=== PATIENT | female | born 1950 | race Caucasian/White ===

== ENCOUNTER 2023-01-05 12:08 | Inpatient (IN) | payer MEDICARE ==
[~2023-01-05] VITALS: Ht 175.3 cm; Wt 74.8 kg
[2023-01-05] MEDS ORDERED: HYDR200T81 PO (12:38)
[2023-01-05] MEDS ORDERED: DILT240C88 PO (12:38)
[2023-01-05] MEDS ORDERED: OLME40TA12 PO (12:38)
[2023-01-05] MEDS ORDERED: CYCL30DR EACHEYE (12:38)
[2023-01-05] MEDS ORDERED: LEVO125T PO (12:38)
[2023-01-05] MEDS ORDERED: PRED-429 PO (12:38)
[2023-01-05 12:49] LABS: BASOPHILS % (AUTO) 0.2 % (0.0-2.0); EOSINOPHILS % (AUTO) 0.4 % (0.0-7.0); HEMATOCRIT 38.3 % (31.2-41.9); HEMOGLOBIN 13.2 g/dL (10.9-14.3); LYMPHOCYTES # (AUTO) 0.5 K/uL (0.8-4.8); MEAN CORPUSCULAR HEMOGLOBIN 33.1 uug (24.7-32.8); MEAN CORPUSCULAR HGB CONC 34 g/dL (32.3-35.6); MEAN CORPUSCULAR VOLUME 96.2 fL (75.5-95.3); MONOCYTES # (AUTO) 0.4 K/uL (0.1-1.30); MONOCYTES % (AUTO) 3.5 % (0.0-11.0); NEUTROPHILS # (AUTO) 10.4 K/uL (1.8-8.9); NEUTROPHILS % (AUTO) 91.9 % (38.5-71.5); PLATELET COUNT (AUTO) 230 K/uL (179-408); RED BLOOD CELL COUNT(AUTO) 3.98 MIL/uL (3.63-4.92); RED CELL DISTRIBUTION WIDTH 13.7 % (12.3-17.7); WHITE BLOOD COUNT (AUTO) 11.3 K/uL (3.8-11.8)
[2023-01-05 12:55] LABS: DIFFERENTIAL COMMENT 1
[2023-01-05 12:56] LABS: *BILIRUBIN,URIN NEGATIVE (NEGATIVE); *BLOOD, URINE NEGATIVE (NEGATIVE); *CLARITY,URINE CLEAR (CLEAR); *COLOR,URINE YELLOW (YELLOW); *KETONES,URINE NEGATIVE (NEGATIVE); *PROTEIN,URINE NEGATIVE (NEGATIVE); *UROBILINOGEN,URINE 0.2 E.U./dl (NORMAL); LEUKOCYTE ESTERASE ,URINE NEGATIVE (NEGATIVE); NITRITE, URINE POSITIVE (NEGATIVE); UGLUCOSE NEGATIVE (NEGATIVE)
[2023-01-05] MEDS ORDERED: hydrALAZINE HCL 20 MG/1 ML VIAL IV PRN (13:15)
[2023-01-05] MEDS ORDERED: MORPHINE SULFATE 2 MG/1 ML DISP.SYRIN IVP PRN (13:15)
[2023-01-05] MEDS ORDERED: ONDANSETRON 4 MG/2 ML VIAL IV PRN (13:15)
[2023-01-05] MEDS ORDERED: ACETAMINOPHEN 325 MG TABLET PO PRN (13:15)
[2023-01-05 13:59] LABS: CALCIUM 10.2 mg/dL (8.5-10.1); CARBON DIOXIDE 28 mmol/L (21-32); CHLORIDE 97 mmol/L (98-107); CREATININE 0.7 mg/dL (0.6-1.3); GLUCOSE 136 mg/dL (74-106); POTASSIUM 4.8 mmol/L (3.5-5.1); SODIUM SERUM 132 mmol/L (136-145); UREA NITROGEN, BLOOD 11 mg/dL (7-18)
[2023-01-05 14:08] LABS: ALANINE AMINOTRANSFERASE 20 U/L (14-59); ALBUMIN 3.9 g/dL (3.4-5.0); ALKALINE PHOSPHATASE 75 U/L (50-136); ASPARTATE AMINOTRANSFERASE 16 U/L (15-37); BILIRUBIN,DIRECT 0.2 mg/dL (0.0-0.2); BILIRUBIN,TOTAL 0.6 mg/dL (0.2-1.0); TOTAL PROTEIN, SERUM 6.6 g/dL (6.4-8.2)
[2023-01-05] MEDS ORDERED: KETOROLAC TROMETHAMINE 15 MG INJ ONE (14:25)
[2023-01-05 14:30] LABS: BACTERIA,URINE MANY /HPF (NONE SEEN); SQUAMOUS EPITHELIAL CELL,UR FEW /HPF (NONE SEEN)
[2023-01-05] MEDS ORDERED: KETOROLAC TROMETHAMINE 15 MG INJ IVP ONE (14:30)
[2023-01-05] MEDS ORDERED: FENTANYL CITRATE 100 MCG/2 ML AMPUL ONE (15:27)
[2023-01-05] MEDS ORDERED: FENTANYL CITRATE 100 MCG/2 ML AMPUL IV ONE (15:30)
[2023-01-05 16:45] VITALS: BP 132/55; TEMP 98.1; O2SAT 99
[2023-01-05] MEDS: predniSONE 5 MG TABLET PO SCH (17:45)
[2023-01-05] MEDS: IV NS 1000 ML 1,000 ML IV SCH (17:45)
[2023-01-05] MEDS: HYDROXYCHLOROQUINE SULFATE 200 MG TABLET PO SCH (17:45)
[2023-01-05] MEDS: DOCUSATE SODIUM 100 MG CAPSULE PO SCH (17:46)
[2023-01-05] MEDS ORDERED: PREDNISONE PO SCH (18:00)
[2023-01-05 20:00] VITALS: BP 124/66; TEMP 98; O2SAT 100
[2023-01-06] MEDS: IV NS 1000 ML 1,000 ML IV SCH (03:03)
[2023-01-06 04:42] VITALS: BP 144/60; TEMP 98; O2SAT 99
[2023-01-06] MEDS: LEVOTHYROXINE SODIUM 125 MCG TABLET PO SCH (06:23)
[2023-01-06 07:10] LABS: BASOPHILS % (AUTO) 0.5 % (0.0-2.0); EOSINOPHILS # (AUTO) 0.1 K/uL (0.0-0.7); EOSINOPHILS % (AUTO) 1.7 % (0.0-7.0); HEMATOCRIT 32.6 % (31.2-41.9); HEMOGLOBIN 11.5 g/dL (10.9-14.3); LYMPHOCYTES # (AUTO) 0.6 K/uL (0.8-4.8); LYMPHOCYTES % (AUTO) 9.3 % (20.5-51.5); MEAN CORPUSCULAR HEMOGLOBIN 33.9 uug (24.7-32.8); MEAN CORPUSCULAR HGB CONC 35 g/dL (32.3-35.6); MEAN CORPUSCULAR VOLUME 95.8 fL (75.5-95.3); MONOCYTES # (AUTO) 0.6 K/uL (0.1-1.30); MONOCYTES % (AUTO) 9.8 % (0.0-11.0); NEUTROPHILS % (AUTO) 78.7 % (38.5-71.5); PLATELET COUNT (AUTO) 211 K/uL (179-408); RED CELL DISTRIBUTION WIDTH 13.8 % (12.3-17.7); WHITE BLOOD COUNT (AUTO) 6.3 K/uL (3.8-11.8)
[2023-01-06 07:28] LABS: DIFFERENTIAL COMMENT 1
[2023-01-06 07:30] LABS: ALANINE AMINOTRANSFERASE 35 U/L (14-59); ALBUMIN 3.3 g/dL (3.4-5.0); ALKALINE PHOSPHATASE 72 U/L (50-136); ASPARTATE AMINOTRANSFERASE 25 U/L (15-37); BILIRUBIN,TOTAL 0.8 mg/dL (0.2-1.0); CALCIUM 9.1 mg/dL (8.5-10.1); CARBON DIOXIDE 31 mmol/L (21-32); CHLORIDE 99 mmol/L (98-107); CREATININE 0.7 mg/dL (0.6-1.3); GLUCOSE 110 mg/dL (74-106); PHOSPHOROUS 3.5 mg/dL (2.5-4.9); POTASSIUM 4.4 mmol/L (3.5-5.1); SODIUM SERUM 132 mmol/L (136-145); UREA NITROGEN, BLOOD 12 mg/dL (7-18)
[2023-01-06] MEDS: HYDROXYCHLOROQUINE SULFATE 200 MG TABLET PO SCH ×2 (09:00→17:57)
[2023-01-06] MEDS: DOCUSATE SODIUM 100 MG CAPSULE PO SCH ×2 (09:25→17:57)
[2023-01-06] MEDS: DILTIAZEM HCL CD 240 MG CAP.SR.24H PO SCH (09:26)
[2023-01-06] MEDS: LOSARTAN POTASSIUM 50 MG TABLET PO SCH (09:26)
[2023-01-06 11:50] VITALS: BP 133/56; TEMP 98.2; O2SAT 95
[2023-01-06] MEDS ORDERED: ROCURONIUM BROMIDE 50 MG/5 ML VIAL ONE (12:57)
[2023-01-06] MEDS ORDERED: FENTANYL CITRATE 250 MCG/5 ML AMPUL ONE (12:57)
[2023-01-06] MEDS ORDERED: SUCCINYLCHOLINE CHLORIDE 200 MG/10 ML VIAL ONE (12:57)
[2023-01-06] MEDS ORDERED: BUPIVACAINE HCL/DEX-WATER/PF 0.75%, 2 ML AMPUL ONE (13:20)
[2023-01-06] MEDS ORDERED: LIDOCAINE-MPF 2% 5 ML VIAL ONE (13:40)
[2023-01-06] MEDS ORDERED: CEFAZOLIN 1 G VIAL ONE (13:40)
[2023-01-06] MEDS ORDERED: EPHEDRINE SULFATE 50 MG/ML AMPUL ONE (13:40)
[2023-01-06] MEDS ORDERED: ONDANSETRON 4 MG/2 ML VIAL ONE (13:40)
[2023-01-06] MEDS ORDERED: DEXAMETHASONE SOD PHOSPHATE 4 MG INJ ONE (13:40)
[2023-01-06] MEDS ORDERED: PROPOFOL 200 MG/20 ML BOTTLE ONE (13:40)
[2023-01-06] MEDS ORDERED: VANCOMYCIN 1000 MG VIAL ONE (14:23)
[2023-01-06] MEDS ORDERED: BUPIVACAINE PF 0.5% 30 ML VIAL ONE (14:50)
[2023-01-06] MEDS ORDERED: IV D5W-0.45% NS +20 KCL 1,000 ML IV ONE (15:33)
[2023-01-06] MEDS ORDERED: FENTANYL CITRATE 100 MCG/2 ML AMPUL ONE (15:54)
[2023-01-06] MEDS ORDERED: IV D5W-0.45% NS +20 KCL 1,000 ML IV PRN (17:00)
[2023-01-06] MEDS ORDERED: MORPHINE SULFATE 4 MG/1 ML DISP.SYRIN IV PRN (17:00)
[2023-01-06] MEDS: predniSONE 5 MG TABLET PO SCH (17:57)
[2023-01-06 20:00] VITALS: BP 120/54; TEMP 96; O2SAT 98
[2023-01-06] MEDS: HYDROCODONE/APAP 10-325 MG TABLET PO PRN (23:11)
[2023-01-06] MEDS: CEFAZOLIN 1 G in IV DEXTROSE 5% 50 ML IV SCH (23:12)
[2023-01-07 04:00] VITALS: BP 135/61; TEMP 98; O2SAT 98
[2023-01-07] MEDS: LEVOTHYROXINE SODIUM 125 MCG TABLET PO SCH (06:08)
[2023-01-07 07:51] VITALS: BP 144/67; TEMP 98.4
[2023-01-07] MEDS: LOSARTAN POTASSIUM 50 MG TABLET PO SCH (08:15)
[2023-01-07] MEDS: DOCUSATE SODIUM 100 MG CAPSULE PO SCH ×2 (08:15→17:12)
[2023-01-07] MEDS: CEFAZOLIN 1 G in IV DEXTROSE 5% 50 ML IV SCH (08:15)
[2023-01-07] MEDS: HYDROXYCHLOROQUINE SULFATE 200 MG TABLET PO SCH ×2 (08:15→17:12)
[2023-01-07] MEDS: DILTIAZEM HCL CD 240 MG CAP.SR.24H PO SCH (08:16)
[2023-01-07] MEDS ORDERED: HEPARIN SODIUM,PORCINE 5,000 UNITS/ML VIAL SQ SCH (09:00)
[2023-01-07 12:00] VITALS: BP 111/55; TEMP 98.4; O2SAT 97
[2023-01-07] MEDS ORDERED: LACTULOSE 20 G/30 ML LIQUID UDC PO ONE (12:00)
[2023-01-07] MEDS: HYDROCODONE/APAP 10-325 MG TABLET PO PRN (13:14)
[2023-01-07] MEDS: predniSONE 5 MG TABLET PO SCH (17:12)
[2023-01-07 18:00] VITALS: BP 107/48; TEMP 98.2; O2SAT 94
[2023-01-07 21:35] VITALS: BP 108/49; TEMP 98.6
[2023-01-07 21:48] VITALS: BP 121/49; TEMP 98.6; O2SAT 100
[2023-01-08 04:48] VITALS: BP 120/55; TEMP 98.2; O2SAT 99
[2023-01-08] MEDS: LEVOTHYROXINE SODIUM 125 MCG TABLET PO SCH (06:19)
[2023-01-08 08:00] VITALS: BP 142/52; TEMP 98.5
[2023-01-08] MEDS: DOCUSATE SODIUM 100 MG CAPSULE PO SCH ×2 (08:23→17:30)
[2023-01-08] MEDS: DILTIAZEM HCL CD 240 MG CAP.SR.24H PO SCH (08:24)
[2023-01-08] MEDS: LOSARTAN POTASSIUM 50 MG TABLET PO SCH (08:24)
[2023-01-08] MEDS: HYDROXYCHLOROQUINE SULFATE 200 MG TABLET PO SCH ×2 (08:29→17:30)
[2023-01-08] MEDS ORDERED: MIRALAX 17 GM POWD.PACK PO SCH (09:00)
[2023-01-08] MEDS ORDERED: HYDR-3980 PO (10:13)
[2023-01-08] MEDS ORDERED: ENOX40DI SQ (10:13)
[2023-01-08] MEDS ORDERED: DOCU-141 PO (10:13)
[2023-01-08] MEDS ORDERED: ENOXAPARIN SODIUM 40 MG/0.4 ML DISP.SYRIN SQ SCH (10:15)
[2023-01-08 10:57] VITALS: BP 115/41
[2023-01-08] MEDS: NITROFURANTOIN/NITROFURAN MAC 100 MG CAPSULE PO SCH ×2 (11:40→20:19)
[2023-01-08 11:45] VITALS: BP 126/52; TEMP 98.2; O2SAT 96
[2023-01-08 16:04] VITALS: BP 125/62; TEMP 98.1; O2SAT 98
[2023-01-08] MEDS: predniSONE 5 MG TABLET PO SCH (17:30)
[2023-01-08 20:56] VITALS: BP 126/41; TEMP 97.8; O2SAT 99
[2023-01-09 04:00] VITALS: BP 137/62; TEMP 98.6; O2SAT 100
[2023-01-09] MEDS ORDERED: LOSARTAN POTASSIUM 50 MG TABLET PO SCH (11:00)
== END 2023-01-09 05:50 | DRG 482 ==
LOC: ER 12:08 → MEDSURG3 16:04
PROVIDERS: ADMIT Internal Medicine; ATTEND Internal Medicine
PROC: 0QS636Z Reposition Right Upper Femur with Intramedullary Internal Fixation Device, Percutaneous Approach (ICD-10-PCS; principal; 2023-01-06)
DX: S72.144A Nondisplaced intertrochanteric fracture of right femur, initial encounter for closed fracture (principal); S72.121A Displaced fracture of lesser trochanter of right femur, initial encounter for closed fracture; W06.XXXA Fall from bed, initial encounter; Y93.89 Activity, other specified; Y92.003 Bedroom of unspecified non-institutional (private) residence as the place of occurrence of the external cause; M32.9 Systemic lupus erythematosus, unspecified; K90.0 Celiac disease; I45.10 Unspecified right bundle-branch block; E03.9 Hypothyroidism, unspecified; I10 Essential (primary) hypertension; E78.5 Hyperlipidemia, unspecified; J44.9 Chronic obstructive pulmonary disease, unspecified; Z79.890 Hormone replacement therapy; Z79.899 Other long term (current) drug therapy
CPT/HCPCS: 36415; 71045; 72170; 73502; 73503; 84100; 84484; 85025; 85730; 93005; A4649; A6209; A6213; C1713; G0378; J0330; J0690; J1100; J1650; J1885; J2270; J2405; J3010; J3370; J3490; J7040; J7512

== ENCOUNTER 2023-01-09 06:31 | Inpatient (IN) | payer MEDICARE ==
[~2023-01-09] VITALS: Ht 175.3 cm; Wt 74.8 kg
[~2023-01-09 06:31] MED LIST: CYCL30DR EACHEYE; DILT240C88 PO; DOCU-141 PO; ENOX40DI SQ; HYDR-3980 PO; HYDR200T81 PO; LEVO125T PO; OLME40TA12 PO; PRED-429 PO
[2023-01-09 08:00] VITALS: BP 122/47; TEMP 98.2; O2SAT 99
[2023-01-09] MEDS: DOCUSATE SODIUM 100 MG CAPSULE PO SCH ×2 (09:21→16:23)
[2023-01-09] MEDS: LOSARTAN POTASSIUM 50 MG TABLET PO SCH (09:22)
[2023-01-09] MEDS: DILTIAZEM HCL CD 240 MG CAP.SR.24H PO SCH (09:23)
[2023-01-09] MEDS: HYDROXYCHLOROQUINE SULFATE 200 MG TABLET PO SCH ×2 (09:23→16:23)
[2023-01-09] MEDS: ENOXAPARIN SODIUM 40 MG/0.4 ML DISP.SYRIN SQ SCH (09:29)
[2023-01-09] MEDS: LEVOTHYROXINE SODIUM 125 MCG TABLET PO SCH (09:38)
[2023-01-09] MEDS: NITROFURANTOIN/NITROFURAN MAC 100 MG CAPSULE PO SCH ×2 (14:09→20:32)
[2023-01-09] MEDS: predniSONE 5 MG TABLET PO SCH (17:04)
[2023-01-09] MEDS ORDERED: PREDNISONE PO SCH (18:00)
[2023-01-09 20:00] VITALS: BP 135/69; TEMP 98.2; O2SAT 98
[2023-01-09] MEDS: HYDROCODONE/APAP 10-325 MG TABLET PO PRN (21:42)
[2023-01-10 04:00] VITALS: BP 127/52; TEMP 98; O2SAT 97
[2023-01-10] MEDS: LEVOTHYROXINE SODIUM 125 MCG TABLET PO SCH (06:38)
[2023-01-10] MEDS ORDERED: LEVOTHYROXINE SODIUM 125 MCG TABLET PO SCH (07:00)
[2023-01-10 07:23] LABS: BASOPHILS % (AUTO) 0.5 % (0.0-2.0); EOSINOPHILS # (AUTO) 0.3 K/uL (0.0-0.7); EOSINOPHILS % (AUTO) 4.7 % (0.0-7.0); HEMATOCRIT 27.2 % (31.2-41.9); HEMOGLOBIN 9.7 g/dL (10.9-14.3); LYMPHOCYTES % (AUTO) 17.8 % (20.5-51.5); MEAN CORPUSCULAR HEMOGLOBIN 33.7 uug (24.7-32.8); MEAN CORPUSCULAR HGB CONC 36 g/dL (32.3-35.6); MEAN CORPUSCULAR VOLUME 94.9 fL (75.5-95.3); MONOCYTES # (AUTO) 0.6 K/uL (0.1-1.30); NEUTROPHILS # (AUTO) 3.8 K/uL (1.8-8.9); PLATELET COUNT (AUTO) 233 K/uL (179-408); RED BLOOD CELL COUNT(AUTO) 2.87 MIL/uL (3.63-4.92); RED CELL DISTRIBUTION WIDTH 13.3 % (12.3-17.7); WHITE BLOOD COUNT (AUTO) 5.8 K/uL (3.8-11.8)
[2023-01-10 07:31] LABS: DIFFERENTIAL COMMENT 1
[2023-01-10 07:55] LABS: CALCIUM 9.7 mg/dL (8.5-10.1); CARBON DIOXIDE 30 mmol/L (21-32); CHLORIDE 97 mmol/L (98-107); CREATININE 0.7 mg/dL (0.6-1.3); GLUCOSE 102 mg/dL (74-106); MAGNESIUM 2.2 mg/dL (1.8-2.4); PHOSPHOROUS 3.2 mg/dL (2.5-4.9); POTASSIUM 4.3 mmol/L (3.5-5.1); SODIUM SERUM 132 mmol/L (136-145); UREA NITROGEN, BLOOD 12 mg/dL (7-18)
[2023-01-10] MEDS: LOSARTAN POTASSIUM 50 MG TABLET PO SCH (08:55)
[2023-01-10] MEDS: DOCUSATE SODIUM 100 MG CAPSULE PO SCH ×2 (08:55→16:56)
[2023-01-10] MEDS: NITROFURANTOIN/NITROFURAN MAC 100 MG CAPSULE PO SCH ×2 (08:55→20:27)
[2023-01-10] MEDS: DILTIAZEM HCL CD 240 MG CAP.SR.24H PO SCH (08:56)
[2023-01-10] MEDS: ENOXAPARIN SODIUM 40 MG/0.4 ML DISP.SYRIN SQ SCH (09:01)
[2023-01-10] MEDS: HYDROXYCHLOROQUINE SULFATE 200 MG TABLET PO SCH ×2 (09:50→16:56)
[2023-01-10 12:00] VITALS: BP 120/60; TEMP 97.9; O2SAT 98
[2023-01-10 16:00] VITALS: BP 119/63; TEMP 98; O2SAT 97
[2023-01-10] MEDS ORDERED: POLYVINYL ALCOHOL OPHT DROPS 15 ML BOTTLE EACHEYE PRN (17:00)
[2023-01-10] MEDS: predniSONE 5 MG TABLET PO SCH (17:32)
[2023-01-10 20:00] VITALS: BP 130/61; TEMP 98.2; O2SAT 96
[2023-01-10] MEDS: HYDROCODONE/APAP 10-325 MG TABLET PO PRN (20:27)
[2023-01-11 04:12] VITALS: BP 153/68; TEMP 97.7; O2SAT 98
[2023-01-11] MEDS: LEVOTHYROXINE SODIUM 125 MCG TABLET PO SCH (06:39)
[2023-01-11] MEDS: LOSARTAN POTASSIUM 50 MG TABLET PO SCH (08:17)
[2023-01-11] MEDS: DOCUSATE SODIUM 100 MG CAPSULE PO SCH ×2 (08:17→16:59)
[2023-01-11] MEDS: HYDROXYCHLOROQUINE SULFATE 200 MG TABLET PO SCH ×2 (08:18→16:59)
[2023-01-11] MEDS: DILTIAZEM HCL CD 240 MG CAP.SR.24H PO SCH (08:18)
[2023-01-11] MEDS: NITROFURANTOIN/NITROFURAN MAC 100 MG CAPSULE PO SCH ×2 (08:18→20:31)
[2023-01-11] MEDS: ENOXAPARIN SODIUM 40 MG/0.4 ML DISP.SYRIN SQ SCH (08:20)
[2023-01-11] MEDS ORDERED: TRAMADOL HCL 50 MG TABLET PO PRN (15:30)
[2023-01-11] MEDS: ACETAMINOPHEN ES 500 MG TABLET PO SCH ×2 (15:38→20:31)
[2023-01-11 16:46] VITALS: BP 132/61; TEMP 98; O2SAT 100
[2023-01-11] MEDS: predniSONE 5 MG TABLET PO SCH (16:59)
[2023-01-11 19:30] VITALS: BP 117/57; TEMP 98.2; O2SAT 99
[2023-01-11] MEDS: REMEDY ESSENTIAL ZINC PASTE 113 GM TOP SCH (20:32)
[2023-01-12 04:30] VITALS: BP 135/57; TEMP 98.1; O2SAT 98
[2023-01-12] MEDS: PANTOPRAZOLE SODIUM 40 MG TABLET.DR PO SCH (06:08)
[2023-01-12] MEDS: LEVOTHYROXINE SODIUM 125 MCG TABLET PO SCH (06:08)
[2023-01-12] MEDS: NITROFURANTOIN/NITROFURAN MAC 100 MG CAPSULE PO SCH ×2 (08:20→21:26)
[2023-01-12] MEDS: DILTIAZEM HCL CD 240 MG CAP.SR.24H PO SCH (08:20)
[2023-01-12] MEDS: ACETAMINOPHEN ES 500 MG TABLET PO SCH ×3 (08:21→21:26)
[2023-01-12] MEDS: DOCUSATE SODIUM 100 MG CAPSULE PO SCH ×2 (08:21→17:40)
[2023-01-12] MEDS: LOSARTAN POTASSIUM 50 MG TABLET PO SCH (08:21)
[2023-01-12] MEDS: ENOXAPARIN SODIUM 40 MG/0.4 ML DISP.SYRIN SQ SCH (08:22)
[2023-01-12] MEDS: HYDROXYCHLOROQUINE SULFATE 200 MG TABLET PO SCH ×2 (08:22→17:40)
[2023-01-12] MEDS: REMEDY ESSENTIAL ZINC PASTE 113 GM TOP SCH ×2 (08:23→21:35)
[2023-01-12 12:40] VITALS: BP 138/57; TEMP 97.8; O2SAT 97
[2023-01-12 16:00] VITALS: BP 125/51; TEMP 98.6; O2SAT 94
[2023-01-12] MEDS: predniSONE 5 MG TABLET PO SCH (17:40)
[2023-01-13] MEDS: PANTOPRAZOLE SODIUM 40 MG TABLET.DR PO SCH (06:20)
[2023-01-13] MEDS: LEVOTHYROXINE SODIUM 125 MCG TABLET PO SCH (06:20)
[2023-01-13 08:00] VITALS: BP 144/56; TEMP 98.1; O2SAT 18
[2023-01-13] MEDS: HYDROXYCHLOROQUINE SULFATE 200 MG TABLET PO SCH ×2 (09:26→17:28)
[2023-01-13] MEDS: DOCUSATE SODIUM 100 MG CAPSULE PO SCH ×2 (09:27→17:28)
[2023-01-13] MEDS: LOSARTAN POTASSIUM 50 MG TABLET PO SCH (09:27)
[2023-01-13] MEDS: NITROFURANTOIN/NITROFURAN MAC 100 MG CAPSULE PO SCH ×2 (09:28→21:10)
[2023-01-13] MEDS: DILTIAZEM HCL CD 240 MG CAP.SR.24H PO SCH (09:28)
[2023-01-13] MEDS: ACETAMINOPHEN ES 500 MG TABLET PO SCH ×3 (09:28→21:10)
[2023-01-13] MEDS: ENOXAPARIN SODIUM 40 MG/0.4 ML DISP.SYRIN SQ SCH (09:29)
[2023-01-13] MEDS: REMEDY ESSENTIAL ZINC PASTE 113 GM TOP SCH ×2 (09:33→21:11)
[2023-01-13] MEDS: predniSONE 5 MG TABLET PO SCH (17:28)
[2023-01-13 18:35] VITALS: BP 116/42; TEMP 97.9; O2SAT 98
[2023-01-13 20:00] VITALS: BP 124/56; TEMP 98; O2SAT 99
[2023-01-14 04:00] VITALS: BP 131/54; TEMP 98.1; O2SAT 99
[2023-01-14] MEDS: LEVOTHYROXINE SODIUM 125 MCG TABLET PO SCH (06:18)
[2023-01-14] MEDS: PANTOPRAZOLE SODIUM 40 MG TABLET.DR PO SCH (06:18)
[2023-01-14 07:51] VITALS: BP 131/44; TEMP 98.1; O2SAT 100
[2023-01-14] MEDS: NITROFURANTOIN/NITROFURAN MAC 100 MG CAPSULE PO SCH ×2 (08:37→20:37)
[2023-01-14] MEDS: DOCUSATE SODIUM 100 MG CAPSULE PO SCH ×2 (08:37→17:34)
[2023-01-14] MEDS: ACETAMINOPHEN ES 500 MG TABLET PO SCH ×3 (08:37→20:37)
[2023-01-14] MEDS: REMEDY ESSENTIAL ZINC PASTE 113 GM TOP SCH ×2 (08:38→20:38)
[2023-01-14] MEDS: ENOXAPARIN SODIUM 40 MG/0.4 ML DISP.SYRIN SQ SCH (08:38)
[2023-01-14] MEDS: DILTIAZEM HCL CD 240 MG CAP.SR.24H PO SCH (08:46)
[2023-01-14] MEDS: HYDROXYCHLOROQUINE SULFATE 200 MG TABLET PO SCH ×2 (08:49→17:34)
[2023-01-14] MEDS ORDERED: LOSARTAN POTASSIUM 50 MG TABLET PO SCH (09:00)
[2023-01-14] MEDS: LOSARTAN POTASSIUM 50 MG TABLET PO SCH (12:00)
[2023-01-14 15:53] VITALS: BP 125/40; TEMP 97.6; O2SAT 100
[2023-01-14] MEDS: predniSONE 5 MG TABLET PO SCH (17:35)
[2023-01-14 19:30] VITALS: BP 124/61; TEMP 98; O2SAT 99
[2023-01-15 04:00] VITALS: BP 129/66; O2SAT 100
[2023-01-15] MEDS: LEVOTHYROXINE SODIUM 125 MCG TABLET PO SCH (06:30)
[2023-01-15] MEDS: PANTOPRAZOLE SODIUM 40 MG TABLET.DR PO SCH (06:30)
[2023-01-15 07:50] VITALS: BP 127/48; TEMP 98.4; O2SAT 100
[2023-01-15] MEDS: ACETAMINOPHEN ES 500 MG TABLET PO SCH ×3 (08:24→21:12)
[2023-01-15] MEDS: DOCUSATE SODIUM 100 MG CAPSULE PO SCH ×2 (08:24→17:42)
[2023-01-15] MEDS: NITROFURANTOIN/NITROFURAN MAC 100 MG CAPSULE PO SCH (08:24)
[2023-01-15] MEDS: HYDROXYCHLOROQUINE SULFATE 200 MG TABLET PO SCH ×2 (08:25→17:41)
[2023-01-15] MEDS: DILTIAZEM HCL CD 240 MG CAP.SR.24H PO SCH (08:26)
[2023-01-15] MEDS: REMEDY ESSENTIAL ZINC PASTE 113 GM TOP SCH ×2 (08:27→21:12)
[2023-01-15] MEDS: ENOXAPARIN SODIUM 40 MG/0.4 ML DISP.SYRIN SQ SCH (08:39)
[2023-01-15] MEDS: LOSARTAN POTASSIUM 50 MG TABLET PO SCH (12:00)
[2023-01-15 15:12] VITALS: BP 111/48; TEMP 98.2; O2SAT 96
[2023-01-15] MEDS: predniSONE 5 MG TABLET PO SCH (17:41)
[2023-01-15 20:00] VITALS: BP 136/44; TEMP 97.7; O2SAT 97
[2023-01-16 04:00] VITALS: BP 125/53; TEMP 98; O2SAT 99
[2023-01-16] MEDS: LEVOTHYROXINE SODIUM 125 MCG TABLET PO SCH (06:41)
[2023-01-16] MEDS: PANTOPRAZOLE SODIUM 40 MG TABLET.DR PO SCH (06:41)
[2023-01-16 07:30] VITALS: BP 139/42; TEMP 98.4; O2SAT 100
[2023-01-16] MEDS: DOCUSATE SODIUM 100 MG CAPSULE PO SCH ×2 (09:00→17:00)
[2023-01-16] MEDS: HYDROXYCHLOROQUINE SULFATE 200 MG TABLET PO SCH ×2 (09:14→17:33)
[2023-01-16] MEDS: ACETAMINOPHEN ES 500 MG TABLET PO SCH ×3 (09:14→21:38)
[2023-01-16] MEDS: REMEDY ESSENTIAL ZINC PASTE 113 GM TOP SCH ×2 (09:15→21:38)
[2023-01-16] MEDS: DILTIAZEM HCL CD 240 MG CAP.SR.24H PO SCH (09:15)
[2023-01-16] MEDS: ENOXAPARIN SODIUM 40 MG/0.4 ML DISP.SYRIN SQ SCH (09:18)
[2023-01-16] MEDS: LOSARTAN POTASSIUM 50 MG TABLET PO SCH (13:07)
[2023-01-16 16:43] VITALS: BP 128/55; TEMP 98.2; O2SAT 97
[2023-01-16] MEDS: predniSONE 5 MG TABLET PO SCH (17:33)
[2023-01-16 20:44] VITALS: BP 135/51; TEMP 97.8; O2SAT 96
[2023-01-17 04:40] VITALS: BP 141/51; TEMP 97.7; O2SAT 96
[2023-01-17] MEDS: PANTOPRAZOLE SODIUM 40 MG TABLET.DR PO SCH (06:22)
[2023-01-17] MEDS: LEVOTHYROXINE SODIUM 125 MCG TABLET PO SCH (06:22)
[2023-01-17 07:30] VITALS: BP 132/46; TEMP 98.2; O2SAT 99
[2023-01-17] MEDS: ACETAMINOPHEN ES 500 MG TABLET PO SCH ×3 (08:43→20:48)
[2023-01-17] MEDS: HYDROXYCHLOROQUINE SULFATE 200 MG TABLET PO SCH ×2 (08:43→17:11)
[2023-01-17] MEDS: DILTIAZEM HCL CD 240 MG CAP.SR.24H PO SCH (08:44)
[2023-01-17] MEDS: DOCUSATE SODIUM 100 MG CAPSULE PO SCH ×2 (08:49→17:00)
[2023-01-17] MEDS: ENOXAPARIN SODIUM 40 MG/0.4 ML DISP.SYRIN SQ SCH (09:31)
[2023-01-17] MEDS: REMEDY ESSENTIAL ZINC PASTE 113 GM TOP SCH ×2 (09:32→20:48)
[2023-01-17] MEDS: LOSARTAN POTASSIUM 50 MG TABLET PO SCH (11:50)
[2023-01-17 15:33] VITALS: BP 117/46; TEMP 98.2; O2SAT 96
[2023-01-17] MEDS: predniSONE 5 MG TABLET PO SCH (17:11)
[2023-01-17 20:38] VITALS: BP 99/43; TEMP 97.8; O2SAT 96
[2023-01-18 04:05] VITALS: BP 128/60; TEMP 98.1; O2SAT 99
[2023-01-18] MEDS: LEVOTHYROXINE SODIUM 125 MCG TABLET PO SCH (06:34)
[2023-01-18] MEDS: PANTOPRAZOLE SODIUM 40 MG TABLET.DR PO SCH (06:34)
[2023-01-18 07:42] VITALS: BP 128/70; TEMP 98; O2SAT 98
[2023-01-18] MEDS: ACETAMINOPHEN ES 500 MG TABLET PO SCH ×3 (08:38→22:10)
[2023-01-18] MEDS: HYDROXYCHLOROQUINE SULFATE 200 MG TABLET PO SCH ×2 (08:39→18:29)
[2023-01-18] MEDS: DILTIAZEM HCL CD 240 MG CAP.SR.24H PO SCH (08:39)
[2023-01-18] MEDS: ENOXAPARIN SODIUM 40 MG/0.4 ML DISP.SYRIN SQ SCH (08:44)
[2023-01-18] MEDS: DOCUSATE SODIUM 100 MG CAPSULE PO SCH ×2 (08:45→17:00)
[2023-01-18] MEDS: REMEDY ESSENTIAL ZINC PASTE 113 GM TOP SCH ×2 (08:45→21:00)
[2023-01-18] MEDS: LOSARTAN POTASSIUM 50 MG TABLET PO SCH (12:00)
[2023-01-18 13:12] VITALS: BP 103/63
[2023-01-18 15:49] VITALS: BP 108/43; TEMP 97.7; O2SAT 96
[2023-01-18] MEDS: predniSONE 5 MG TABLET PO SCH (18:29)
[2023-01-18 20:00] VITALS: BP 122/59; TEMP 98.3; O2SAT 97
[2023-01-19 04:00] VITALS: BP 122/48; TEMP 98.2; O2SAT 96
[2023-01-19] MEDS: LEVOTHYROXINE SODIUM 125 MCG TABLET PO SCH (07:09)
[2023-01-19] MEDS: PANTOPRAZOLE SODIUM 40 MG TABLET.DR PO SCH (07:09)
[2023-01-19 08:00] VITALS: BP_SYST 134; BP_SYST 135; BP_DIAS 50; BP_DIAS 53; TEMP 97.1; TEMP 97.8; O2SAT 97; O2SAT 99
[2023-01-19] MEDS: DOCUSATE SODIUM 100 MG CAPSULE PO SCH ×2 (08:32→16:46)
[2023-01-19] MEDS: DILTIAZEM HCL CD 240 MG CAP.SR.24H PO SCH (08:32)
[2023-01-19] MEDS: ACETAMINOPHEN ES 500 MG TABLET PO SCH ×3 (08:32→20:44)
[2023-01-19] MEDS: ENOXAPARIN SODIUM 40 MG/0.4 ML DISP.SYRIN SQ SCH (08:33)
[2023-01-19] MEDS: REMEDY ESSENTIAL ZINC PASTE 113 GM TOP SCH ×2 (08:33→21:16)
[2023-01-19] MEDS: HYDROXYCHLOROQUINE SULFATE 200 MG TABLET PO SCH ×2 (08:34→16:46)
[2023-01-19] MEDS: LOSARTAN POTASSIUM 50 MG TABLET PO SCH (12:11)
[2023-01-19 16:00] VITALS: BP 103/48; TEMP 98.2; O2SAT 96
[2023-01-19] MEDS: predniSONE 5 MG TABLET PO SCH (17:00)
[2023-01-19 20:00] VITALS: BP 130/46; TEMP 98.3; O2SAT 100
[2023-01-20 04:00] VITALS: BP 128/49; TEMP 98; O2SAT 99
[2023-01-20] MEDS: LEVOTHYROXINE SODIUM 125 MCG TABLET PO SCH (06:09)
[2023-01-20] MEDS: PANTOPRAZOLE SODIUM 40 MG TABLET.DR PO SCH (06:09)
[2023-01-20 08:15] VITALS: BP 111/49; TEMP 97.7; O2SAT 95
[2023-01-20] MEDS: DILTIAZEM HCL CD 240 MG CAP.SR.24H PO SCH (08:22)
[2023-01-20] MEDS: DOCUSATE SODIUM 100 MG CAPSULE PO SCH ×2 (08:22→16:39)
[2023-01-20] MEDS: ACETAMINOPHEN ES 500 MG TABLET PO SCH ×3 (08:22→20:31)
[2023-01-20] MEDS: ENOXAPARIN SODIUM 40 MG/0.4 ML DISP.SYRIN SQ SCH (08:23)
[2023-01-20] MEDS: HYDROXYCHLOROQUINE SULFATE 200 MG TABLET PO SCH ×2 (08:23→16:38)
[2023-01-20] MEDS: REMEDY ESSENTIAL ZINC PASTE 113 GM TOP SCH ×2 (08:25→20:32)
[2023-01-20] MEDS: LOSARTAN POTASSIUM 50 MG TABLET PO SCH (13:04)
[2023-01-20 16:00] VITALS: BP 123/54; TEMP 97.8; O2SAT 97
[2023-01-20] MEDS: predniSONE 5 MG TABLET PO SCH (17:07)
[2023-01-20 20:26] VITALS: BP 120/41; TEMP 97.7; O2SAT 96
[2023-01-21 04:40] VITALS: BP 139/67; TEMP 98.1; O2SAT 98
[2023-01-21] MEDS: PANTOPRAZOLE SODIUM 40 MG TABLET.DR PO SCH (06:09)
[2023-01-21] MEDS: LEVOTHYROXINE SODIUM 125 MCG TABLET PO SCH (06:09)
[2023-01-21 07:56] VITALS: BP 116/44; TEMP 98; O2SAT 100
[2023-01-21] MEDS: DILTIAZEM HCL CD 240 MG CAP.SR.24H PO SCH (08:34)
[2023-01-21] MEDS: ACETAMINOPHEN ES 500 MG TABLET PO SCH ×2 (08:34→12:07)
[2023-01-21] MEDS: DOCUSATE SODIUM 100 MG CAPSULE PO SCH (08:34)
[2023-01-21] MEDS: HYDROXYCHLOROQUINE SULFATE 200 MG TABLET PO SCH (08:35)
[2023-01-21] MEDS: REMEDY ESSENTIAL ZINC PASTE 113 GM TOP SCH (08:39)
[2023-01-21] MEDS: ENOXAPARIN SODIUM 40 MG/0.4 ML DISP.SYRIN SQ SCH (08:39)
[2023-01-21 11:58] VITALS: BP 127/60; TEMP 98.1; O2SAT 98
[2023-01-21 12:07] VITALS: BP 127/60
[2023-01-21] MEDS: LOSARTAN POTASSIUM 50 MG TABLET PO SCH (12:07)
== END 2023-01-21 12:30 | DRG 560 ==
PROVIDERS: ADMIT Physical Medicine & Rehabilitation Pain Medicine; ATTEND Physical Medicine & Rehabilitation Pain Medicine
DX: S72.141D Displaced intertrochanteric fracture of right femur, subsequent encounter for closed fracture with routine healing (principal); D68.59 Other primary thrombophilia; E44.0 Moderate protein-calorie malnutrition; E03.9 Hypothyroidism, unspecified; I10 Essential (primary) hypertension; E78.5 Hyperlipidemia, unspecified; W01.0XXD Fall on same level from slipping, tripping and stumbling without subsequent striking against object, subsequent encounter; I45.10 Unspecified right bundle-branch block; M32.9 Systemic lupus erythematosus, unspecified; D50.9 Iron deficiency anemia, unspecified; E86.0 Dehydration; G89.29 Other chronic pain; M19.90 Unspecified osteoarthritis, unspecified site; I25.10 Atherosclerotic heart disease of native coronary artery without angina pectoris; I25.2 Old myocardial infarction; J45.909 Unspecified asthma, uncomplicated; Z87.11 Personal history of peptic ulcer disease; K58.0 Irritable bowel syndrome with diarrhea; I95.9 Hypotension, unspecified; K90.0 Celiac disease; Z79.899 Other long term (current) drug therapy; M54.9 Dorsalgia, unspecified
CPT/HCPCS: 36415; 73502; 83735; 84100; 85025; 97535-GO-CO; A6209; A6213; A9150; J1650; J7512